=== PATIENT | female | born 1980 | race Caucasian/White ===

== ENCOUNTER → 2020-08-30 | Outpatient (CLI) | payer OTHER ==
[2015-10-20 23:48] VITALS: BP 123/88
[~2020-08-30] MED LIST: CHLO1CAP50 PO; METO5TAB55 PO; PANT40TA77 PO
--- NOTE | 2020-08-30 08:29 | KCIC ---
CHEST AP ONLY INDICATION: Reason: EVAL FOR METAL PRIOR TO MRI PER PROTOCOL / Spl. 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 / History: . COMPARISON STUDY: None. FINDINGS: Lungs: Normal lung volume. No pulmonary mass or consolidation. The tracheobronchial tree and hilar structures are normal. Pleura: No pleural effusion or pneumothorax. Heart and Mediastinum: The cardiomediastinal silhouette is normal. The great vessels of the thorax are normal. Bones and Soft Tissues: The bones and soft tissues are within normal limits. IMPRESSION: No focal airspace disease. No metallic foreign body. Electronically signed by: Elvis Mao MD (08/30/2020 8:26 AM) [id number]
--- NOTE | 2020-08-30 09:58 | KCIC ---
MRI Brain without contrast History: Chronic migraine headache, Chiari malformation type II, previous surgeries Technique: Multiplanar, multisequential noncontrast MR imaging was performed of the brain. Comparison: None Findings: There is some motion degradation. There has likely been suboccipital decompression with associated inferior bony calvarial defect and postsurgical extending to the posterior skin surface in the suboccipital and superior neck region. Cerebellar tonsils project inferior to the expected region of the foramen magnum by about 1.2 cm, have a fairly round appearance. There is partial effacement of the inferior fourth ventricle, remainder of the ventricles are not dilated. There is small posterior fossa. 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 There is no evidence of recent infarct or cytotoxic edema. There is no significant midline shift, intraaxial mass effect, or focal abnormal extra-axial fluid collection. There is no significant signal abnormality of the brain parenchyma. There is preservation of the major intracranial flow-voids at the skull base. There is no significant abnormality of the pineal gland or pituitary gland. There is patchy moderate to severe left ethmoid air cell mucosal thickening, minimally on the right. There is mild left frontal sinus mucosal thickening. There is some very minimal patchy fluid and thickening of the mastoid air cells.There is heterogeneous low signal of the marrow of the nonexpanded clivus, may be due to residual red marrow in a patient of this age. There is nonspecific prominence of adenoids and tonsils. 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 Impression: 1. 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 2. There is paranasal sinus mucosal thickening greatest of left ethmoid air cells. 3. There is nonspecific prominence of adenoids and tonsils. Electronically signed by: Elvis Coon MD (08/30/2020 9:56 AM) [facility]
== END ==
LOC: KCIC MRI 07:51
PROVIDERS: ATTEND Nurse Practitioner Family
DX: G43.709 Chronic migraine without aura, not intractable, without status migrainosus (principal); Q07.01 Arnold-Chiari syndrome with spina bifida
CPT/HCPCS: 70551; 71045

== ENCOUNTER → 2020-10-22 | Outpatient (CLI) | payer OTHER ==
[2015-10-20 23:48] VITALS: BP 123/88
[~2020-10-22] MED LIST changes: +ZOLPIDEM 5 MG TABLET. PO ONE
--- NOTE | 2020-10-23 08:54 | SLEEP ---
DATE OF STUDY: 10/22/2020 OBJECTIVE: The patient is a 40-year-old female with insomnia, restless legs, snoring, fatigue, observed apnea, excessive somnolence. Height 5 feet 3 inches, weight 200 pounds, body mass index 36, Anton sleep score is 16. INTERPRETATION: Sleep architecture is characterized by sleep efficiency of 72% across the 7.2 hours of recording time. Sleep onset latency is 15.5 minutes. There is absence of stage 3 and REM sleep. Respiratory monitoring shows a total of 57 events for an apnea-hypopnea index of 11 events per hour of sleep. Most of the events are obstructive apneas and hypopneas. The minimum oxygen saturation is 89%. The patient is started on treatment. At a CPAP setting of 13 cm, apnea/hypopnea index falls to 1.4 events per hour of sleep. There are 8 periodic limb movements per hour, 1 per hour associated with arousal. No significant cardiac arrhythmias are observed. IMPRESSION: Abnormal polysomnogram showing obstructive sleep apnea-hypopnea amenable to treatment with 13 cm of CPAP, using a Respironics DreamWear full face mask, small size. RECOMMENDATIONS: 1. Our office will attempt to arrange this setting for the patient. 2. The patient should avoid sedatives and alcohol and pursue weight loss. 3. The patient will follow up with Ms. Langford in her clinic. Thank you for letting us help with the patient's care. RO HINOJOSA MD DR: TAY/xavier JOB#: [id number] / [id number] REVA Nunes PRATIP MD
== END ==
LOC: SLPLAB 18:59
PROVIDERS: ATTEND Nurse Practitioner Family
DX: G47.33 Obstructive sleep apnea (adult) (pediatric) (principal)
CPT/HCPCS: 95810